=== PATIENT | male | born 1970 | race Caucasian/White ===

== ENCOUNTER 2016-09-25 19:26 | Emergency (ER) | payer MEDICAID ==
--- NOTE | 2016-09-25 20:13 | EDM.PDOC ---
ED HPI GENERAL MEDICAL PROBLEM - General Chief Complaint: Fever Stated Complaint: FEVER,COUGH Time Seen by Provider: 09/25/16 19:50 Source of Information: Reports: Patient History Limitations: Reports: No limitations - History of Present Illness INITIAL COMMENTS - FREE TEXT/NARRATIVE: Pt claims that he has had nasal congestion and congestion for about 1 wk now. But today he started having sudden onset of fever, which was 103F in the afternoon, which is still present. Feels chills and bodyache and headache. No nausea or vomiting. Has been having persistent cough today. cough worsens if he lyes down. Onset: today Onset Date: 09/25/16 Onset Time: 11:00 Improves with: Reports: None Worsens with: Reports: None Associated Symptoms: Reports: cough, fever/chills, headaches. Denies: confusion , chest pain, diaphoresis, nausea/vomiting, rash, seizure, shortness of breath, syncope, weakness - Related Data Allergies Allergy/AdvReac Type Severity Reaction Status Date / Time cefuroxime [From Ceftin] Allergy Airway Verified 09/25/16 20:06 Tightness Home Meds: Home Meds Fenofibrate [Lofibra] 160 mg PO DAILY 09/25/16 [History] Insulin Aspart [NovoLOG] 27 units SQ TIDMEALS 09/25/16 [History] Insulin Detemir [Levemir Flextouch] 60 unit SQ BID 09/25/16 [History] Montelukast Sodium [Singulair] 10 mg PO QPM 09/25/16 [History] Niacin 500 mg PO BID 09/25/16 [History] Ramipril [Altace] 5 mg PO DAILY 09/25/16 [History] atorvaSTATin [Lipitor] 40 mg PO QPM 09/25/16 [History] metFORMIN HCl [Metformin HCl] 1,000 mg PO BIDMEALS 09/25/16 [History] ED ROS GENERAL - Review of Systems Review Of Systems: See Below Constitutional: Reports: fever, chills, malaise. Denies: diaphoresis HEENT: Reports: Rhinitis, Sinus problem. Denies: Throat pain, Throat swelling Respiratory: Reports: Cough. Denies: Shortness of Breath, Wheezing, Sputum Cardiovascular: Denies: Chest pain, Lightheadedness GI/Abdominal: Denies: Abdominal pain, Nausea, Vomiting : Denies: dysuria, flank pain Musculoskeletal: Reports: muscle pain. Denies: neck pain, shoulder pain, joint pain, joint swelling Skin: Denies: pruritis, rash Neurological: Reports: Headache. Denies: Dizziness, Seizure, Syncope Psychiatric: Denies: Agitation, Anxiety ED EXAM, GENERAL - Physical Exam Exam: See Below Exam Limited By: No limitations General Appearance: alert, WD/WN, no apparent distress, other (febrile) Eye Exam: bilateral eye: conjunctival injection, EOMI, PERRL Ears: normal external exam, normal canal, hearing grossly normal, normal TMs Ear Exam: bilateral ear: auricle normal, canal normal, TM normal Nose: normal mucosa (congestion), nasal drainage (clear) Throat/Mouth: Normal inspection, Normal lips, Normal teeth, Normal gums, Normal oropharynx, Normal voice, No airway compromise, Other (clear post nasal drip) Head: atraumatic, normocephalic Neck: normal inspection, supple, non-tender, full range of motion Respiratory/Chest: no respiratory distress, lungs clear, normal breath sounds, no accessory muscle use, chest non-tender Neurological: alert, oriented, CN II-XII intact, normal cognition, normal gait, normal reflexes, no motor/sensory deficits Skin Exam: Warm, Intact Course - Vital Signs Text/Narrative:: Flu test is negative, cbc appears normal, Chest Xray appears normal. Pt reassured that he has recurrent URI with fever. Advised rest and hydration. Fever control with tylenol every 6 hrs. Zyrtec 10mg daily. Vit C 1000mg daily. - Orders/Labs/Meds Orders: Active Orders 24 hr Category Date Time Status Chest 2V [CR] Stat Exams 09/25/16 19:59 Ordered CBC WITH AUTO DIFF [HEME] Stat Lab 09/25/16 19:59 Ordered INFLUENZA A+B AG SCREEN [RM] Stat Lab 09/25/16 19:59 Ordered Departure - Departure Time of Disposition: 20:55 Disposition: Home, Self-Care 01 Condition: fair Clinical Impression: Viral URI with cough Forms: ED Department Discharge Additional Instructions: Flu test is negative, cbc appears normal, Chest Xray appears normal. Pt reassured that he has recurrent URI with fever. Advised rest and hydration. Fever control with tylenol 500mg every 6 hrs. Zyrtec 10mg daily. Vit C 1000mg daily. - Problem List & Annotations (1) Viral URI with cough SNOMED Code(s): 04066171 Code(s): J06.9 - ACUTE UPPER RESPIRATORY INFECTION, UNSPECIFIED; B97.89 - OTH VIRAL AGENTS THE CAUSE OF DISEASES CLASSD [id number] Status: Acute Current Visit: Yes - Problem List Review Problem List Initiated/Reviewed/Updated: Yes - My Orders Last 24 Hours: My Active Orders 09/25/16 19:59 Chest 2V [CR] Stat CBC WITH AUTO DIFF [HEME] Stat INFLUENZA A+B AG SCREEN [RM] Stat - Assessment/Plan Last 24 Hours: My Active Orders 09/25/16 19:59 Chest 2V [CR] Stat CBC WITH AUTO DIFF [HEME] Stat INFLUENZA A+B AG SCREEN [RM] Stat Assessment:: Viral URI with cough Plan: Flu test is negative, cbc appears normal, Chest Xray appears normal. Pt reassured that he has recurrent URI with fever. Advised rest and hydration. Fever control with tylenol every 6 hrs. Zyrtec 10mg daily. Vit C 1000mg daily. Followup in clinic if symptoms worsen.
[2016-09-25 20:17] VITALS: BP 138/82
[2016-09-25] MEDS ORDERED: Acetaminophen 325 MG Tab PO ONE (20:29)
[2016-09-25] MEDS ORDERED: Acetaminophen 500 MG Tab ONE (20:35)
--- NOTE | 2016-09-26 07:27 | CR ---
DATE OF SERVICE: 09/25/16 CLINICAL DATA: cough and fever PA AND LATERAL CHEST: Comparison is made to a prior exam dated 03/01/06. The patient has taken a poor inspiration. The heart size is normal. The lungs are clear. No pneumothorax. No pleural effusions. No areas of consolidation. No evidence of acute intrathoracic disease. [id number] [facility]
== END 2016-09-25 20:56 | disposition home or self-care (01) ==
LOC: LB.ED 19:26
DX: J06.9 Acute upper respiratory infection, unspecified (principal); Z88.1 Allergy status to other antibiotic agents; Z79.4 Long term (current) use of insulin; Z79.899 Other long term (current) drug therapy
CPT/HCPCS: 36415; 71020; 85025; 87804; 99283; A9270

== ENCOUNTER 2021-08-20 12:35 | Emergency (ER) | payer BC ==
[2021-08-20] MEDS ORDERED: Tamsulosin 0.4 MG Cap.ER ONE (15:24)
[2021-08-20] MEDS ORDERED: Ondansetron 4 MG Tab.DIS ONE (15:30)
[2021-08-20] MEDS ORDERED: Acetaminophen/oxyCODONE 325-5 MG Tab ONE (15:30)
== END 2021-08-20 15:32 | disposition home or self-care (01) ==
LOC: LB.ED 12:35
DX: N13.2 Hydronephrosis with renal and ureteral calculous obstruction (principal); R59.0 Localized enlarged lymph nodes; E78.00 Pure hypercholesterolemia, unspecified; I10 Essential (primary) hypertension; E66.9 Obesity, unspecified; Z68.30 Body mass index [BMI] 30.0-30.9, adult; Z88.1 Allergy status to other antibiotic agents; Z79.4 Long term (current) use of insulin; Z79.899 Other long term (current) drug therapy; Z72.0 Tobacco use
CPT/HCPCS: 36415; 74176; 80053; 81001; 82150; 83690; 85025; 99284-25; A9270-GY; Q0162

== ENCOUNTER 2022-05-31 09:51 | Emergency (ER) | payer BC ==
[2022-05-31 10:16] VITALS: BP 139/88; PULSE 97
[2022-05-31] MEDS ORDERED: Ketorolac 60 MG/2 ML SDV IM ONE (10:35)
[2022-05-31] MEDS ORDERED: Ketorolac 60 MG/2 ML SDV ONE (10:46)
== END 2022-05-31 11:30 | disposition home or self-care (01) ==
LOC: LB.ED 09:51
DX: S90.121A Contusion of right lesser toe(s) without damage to nail, initial encounter (principal); E78.00 Pure hypercholesterolemia, unspecified; I10 Essential (primary) hypertension; E11.9 Type 2 diabetes mellitus without complications; E66.9 Obesity, unspecified; Z68.30 Body mass index [BMI] 30.0-30.9, adult; Z88.1 Allergy status to other antibiotic agents; Z79.4 Long term (current) use of insulin; Z79.899 Other long term (current) drug therapy; W22.8XXA Striking against or struck by other objects, initial encounter; Y93.01 Activity, walking, marching and hiking; Y92.009 Unspecified place in unspecified non-institutional (private) residence as the place of occurrence of the external cause
CPT/HCPCS: 73660-T9; 96372; 99283; J1885